=== PATIENT | female | born 2000 | race Two or more races ===

== ENCOUNTER 2018-06-17 02:49 | Emergency (ER) | payer OTHER ==
[~2018-06-17] VITALS: Ht 152.4 cm; Wt 136.1 kg
[2018-06-17 04:06] LABS: Basophils # (auto) 0.1 uL; Basophils % (auto) 0.5 % (0.0-2.0); Eosinophils # (auto) 0.3 uL; Hemoglobin 10.5 g/dL (12.2-16.2); Monocytes # (auto) 0.6 uL; Monocytes % (auto) 4.9 % (0.0-12.0); Nucleated Red Blood Cells % 0.1 %; Red Cell Distribution Width 16.7 % (11.8-14.3)
[2018-06-17 04:08] LABS: Eosinophils % (auto) 2.5 % (0.0-7.0); Lymphocytes # (auto) 3.3 uL; Lymphocytes % (auto) 27.4 % (10.0-50.0); Mean Corpuscular Hemoglobin 25.2 pg (28.0-32.0); Mean Corpuscular Hgb Conc. 31.7 g/dL (32.0-36.0); Mean Corpuscular Volume 79.4 fL (80.0-100.0); Neutrophils # (auto) 7.9 uL; Neutrophils % (auto) 64.7 % (37.0-80.0); Platelet Count (auto) 221 10^3/uL (140-450); Red Blood Cells 4.15 10^6/uL (4.0-5.20); White Blood Cell 12.2 10^3/uL (4.4-10.8)
[2018-06-17 04:25] LABS: Albumin 3.6 g/dL (3.4-5.0); BUN/Creatinine Ratio 20.2; Calcium 8.8 mg/dL (8.5-10.1); Potassium 3.8 mmol/L (3.5-5.1)
[2018-06-17 04:27] LABS: Bilirubin, Total 0.3 mg/dL (0.2-1.0); Total Protein 8.1 g/dL (6.4-8.2)
[2018-06-17 05:37] LABS: Urine Bacteria NONE SEEN /hpf (None Seen); Urine Blood 3+ /uL (Negative); Urine Specific Gravity 1.021 (1.001-1.035); Urine WBC 152 /hpf (0 - 5); Urine WBC Clumps PRESENT /hpf (None Seen)
[2018-06-17] MEDS ORDERED: medroxyPROGESTERone ACETATE 5 MG TAB PO ONE (07:15)
[2018-06-17] MEDS ORDERED: cefTRIAXone SOD 1,000 MG VL IM ONE (07:15)
[2018-06-17] MEDS ORDERED: LIDOCAINE 1% HCL (LOCAL ANESTH.) INJ 20ML MDV ONE (07:47)
[2018-06-17] MEDS ORDERED: LIDOCAINE 1% HCL (LOCAL ANESTH.) INJ 20ML MDV IJ ONE (08:00)
[2018-06-17 08:07] VITALS: BP 106/62
== END 2018-06-17 08:14 | disposition home or self-care (01) ==
LOC: ER 02:52
DX: N92.0 Excessive and frequent menstruation with regular cycle (principal); N39.0 Urinary tract infection, site not specified
CPT/HCPCS: 36415; 80053; 81001; 84702; 85025; 96372; 99284; J0696; J2001